=== PATIENT | female | born 1990 | race Caucasian/White ===

== ENCOUNTER 2024-11-05 09:01 | Outpatient (CLI) | payer OTHER, SELFPAY ==
--- NOTE | ~2024-11-05 | MMUS_ITS ---
EXAMINATION: MM diagnostic lyssa BI w virgen, US breast RT limited HISTORY: Right breast lump TECHNIQUE: 3-D tomosynthesis images of the breasts were performed and synthetic 2-D images were gener ated. CAD analysis was submitted and interpreted. High resolution limited right breast ultrasound was performed. COMPARISON: None BREAST PARENCHYMAL COMPOSITION:Dense: The breasts are heterogeneously dense, which may obscure small masses. FINDINGS: MAMMOGRAPHIC FINDINGS: There is a 2.5 cm ovoid mass at the lower, inner right breast in the subareolar region. Bilateral sca ttered benign calcified lesions are present. Benign right intramammary lymph node noted. No suspiciou s mass or distortion seen in the left breast. ULTRASOUND: At the 2:00 position right breast, 2 cm from the nipple, there is a 2.5 x 1.5 x 2.8 cm anechoic simpl e circumscribed cyst. IMPRESSION: Simple breast cyst at the lower, inner right subareolar region measuring 2.8 cm in maximum diameter. No evidence for malignancy. BI-RADS Category 2: Benign finding(s). Reviewed, dictated and finalized at location M. D IN IMPRESSION: Simple breast cyst at the lower, inner right subareolar region measuring 2.8 c m in maximum diameter. No evidence for malignancy. BI-RADS Category 2: Benign finding(s).
== END 2024-11-05 09:02 | disposition home or self-care (01) ==
PROVIDERS: PCP Family Medicine; Visit Provider Obstetrics & Gynecology
DX: N60.01 Solitary cyst of right breast (principal)
CPT/HCPCS: 76642; 77062; 77066; G0279